=== PATIENT | female | born 1970 | race Caucasian/White ===

== ENCOUNTER → 2023-10-05 14:30 | Outpatient (REF) | payer OTHER, SELFPAY | LOC: RAD 14:30 | PROVIDERS: ATTENDING PHYSICIAN Nurse Practitioner Adult Health | DX: M54.50 Low back pain, unspecified (principal) | CPT/HCPCS: 72110 ==

== ENCOUNTER → 2023-11-05 09:16 | Outpatient (REF) | payer OTHER, SELFPAY | LOC: RCS 09:16 | PROVIDERS: ATTENDING PHYSICIAN Nurse Practitioner Adult Health | DX: R94.31 Abnormal electrocardiogram [ECG] [EKG] (principal); I45.10 Unspecified right bundle-branch block; R07.9 Chest pain, unspecified; R06.09 Other forms of dyspnea | CPT/HCPCS: 93225; 93226 ==

== ENCOUNTER 2024-04-04 11:48 | Emergency (ER) | payer OTHER, SELFPAY ==
[2024-04-04] VITALS (8 sets, daily range): BP systolic 129–162; BP diastolic 79–101; PULSE 63–92
[2024-04-04 12:09] LABS: % Basophils 1.1 % (0-2); % Eosinophils 2.5 % (0-6); % Lymphocytes 32.3 % (20.5-51.1); % Monocytes 7.8 % (1.7-9.3); % Neutrophils 56.3 % (42.2-75.2); Absolute Eosinophils 0.1 10^3/uL (0-0.7); Absolute Lymphocytes 1.2 10^3/uL (1.2-3.4); Absolute Monocytes 0.3 10^3/uL (0.1-0.6); Hematocrit 41.1 % (37.0-47.0); Hemoglobin 13.9 g/dL (12.0-16.0); Mean Corp Hgb Conc. 33.8 g/dL (33.0-37.0); Mean Corpuscular Hgb 30.3 pg (27.0-31.0); Mean Corpuscular Volume 89.5 fL (81.0-99.0); Mean Platelet Volume 9.4 fL (7.4-10.4); Nucleated Red Blood Cells % 0 %; Platelet Count 196 10^3/uL (130-400); Red Blood Cell Count 4.59 10^6/uL (4.20-5.40); Red Cell Dist. Width 13.2 % (11.5-14.5); White Blood Cell Count 3.6 10^3/uL (4.8-10.8)
[2024-04-04 12:20] LABS: ALT (SGPT) 75 U/L (0-35); AST (SGOT) 62 U/L (14-36); Albumin 4.9 g/dl (3.5-5.0); Alkaline Phosphatase 68 U/L (38-126); Blood Urea Nitrogen 9 mg/dl (7-17); Calcium 9.8 mg/dl (8.4-10.2); Carbon Dioxide 28 mmol/L (22-30); Chloride 103 mmol/L (98-107); Glucose 101 mg/dl (70-99); Potassium 4.7 mmol/L (3.5-5.1); Sodium 143 mmol/L (135-145); Total Bilirubin 0.2 mg/dl (0.2-1.3); Total Protein 6.9 g/dl (6.3-8.2); eGFR > 60.00
[2024-04-04 12:31] LABS: Troponin I < 0.012 ng/ml
--- NOTE | 2024-04-04 13:10 | ED.GENMED ---
History of Present Illness
General
Chief Complaint: Dizziness
Source: patient and family
Exam Limitations: none
Time Seen by Provider: 04/04/24 12:15
Nursing documentation reviewed up to this point in time: agreed with
History of Present Illness
History of Present Illness:
Patient is a 54-year-old female presenting to the emergency department via EMS following near syncopal event preparing to go today. Patient states she was walking up to the polls when she started to feel anxious. Patient states she started to feel
extremely lightheaded, dizzy, with tunnel vision and was able to get herself onto the ground. Patient states she did not lose consciousness. No injuries. Many people were around at the time and came over to assist. Someone did call 911 and
transported patient to the emergency department.
Patient does state that she feels better than she did at time of near-syncope although she still feels mildly lightheaded and 'off '.
Patient denies any preceding chest pain, shortness of breath, headache. Patient denies any nausea, vomiting.
Past History
Past History
ED Past Medical History: Asthma, Seizures and Other (Scoliosis, chronic back pain maintained on tramadol, migraine headaches, anxiety, Iron deficiency anemia, ovarian cyst, IBS)
ED Past Surgical History: Cholecystectomy, , Gynecological and Orthopedic (Scoliosis surgery at age 11 )
Social History
Tobacco: Former smoker
Alcohol: None
Drug: None
Personal:
Living: with family
Employment: Employed
Family History
Family History: Hypertension
Review of Systems
Review of Systems
Allergies reviewed?: Yes
All Other Systems: ROS reviewed and negative except as documented in HPI and ROS
Phy Exam
Physical Exam
Physical Exam:
Vitals: Hypertensive, otherwise vital signs stable. Afebrile
General: Patient is anxious appearing, no acute distress
Skin: Warm and dry, no rashes or lesions
Head: Normocephalic, atraumatic
Eyes: Sclera nonicteric. EOMs intact. No nystagmus.
Throat: Protecting airway
Neck: Normal ROM, no cervical spine tenderness, no meningismus
Cardiac: Regular rate and rhythm, no murmurs.
Pulm: Normal respiratory effort, no wheezes, rales, rhonchi heard on exam.
Abdomen: Abdomen soft. No abdominal tenderness.
Extremities: No evidence of cyanosis or edema. Palpable DP pulses bilaterally. Negative Homans' sign bilaterally.
Neuro: AAOx3. CN II-XII intact. No focal neurologic deficits.
Psychiatric: Normal affect.
Course
Orders/Labs/Results
Orders:
Orders
04/04/24 11:50
Electrocardiogram (*1) Urgent
Reason for Study: Vertigo / Dizzy
04/04/24 11:51
EKG- Treatment ONCE
04/04/24 11:52
Complete Blood Count/With Diff Urgent
Comprehensive Metabolic Panel Urgent
Troponin I Urgent
04/04/24 12:58
EKG [Electrocardiogram (*1)] Urgent
Reason for Study: Vertigo / Dizzy
EKG- Treatment ONCE
Orthostatic VS- Treatment ONCE
0.9% Sodium Chloride 1000 ml [Nss] 1,000 ml IV BOLUS
04/04/24 13:49
Lorazepam [Ativan] 0.5 mg PO NOW STA
Abnormal Lab Results
04/04/24
11:52
WBC 3.6 L 10^3/uL
(4.8-10.8)
Glucose 101 H mg/dl
(70-99)
AST 62 H U/L
(14-36)
ALT 75 H U/L
(0-35)
04/04/24 11:52
04/04/24 11:52
Vital Signs
Initial and Last Documented VS:
Initial Vital Signs
Temp Pulse Resp Pulse Ox
97.9 F 70 17 98
04/04/24 11:52 04/04/24 11:52 04/04/24 11:52 04/04/24 11:52
Last Documented Vital Signs
Temp Pulse Resp BP Pulse Ox
97.9 F 69 16 146/97 99
04/04/24 11:52 04/04/24 14:45 04/04/24 14:45 04/04/24 14:00 04/04/24 14:45
MDM/Problems Addressed
Differential Diagnosis Includes:
Not limited to: Dehydration, viral illness, vasovagal syncope, cardiac arrhythmia
MDM/Problems Addressed:
54-year-old female presenting following near syncopal event. Patient reports feeling very anxious prior to lightheadedness, dizziness. No preceding chest pain, shortness of breath. There was no reported loss of consciousness. Patient presents
feeling somewhat lightheaded, otherwise asymptomatic. Patient initially hypertensive on arrival although normalized by my assessment. Otherwise vital signs are stable. Patient is afebrile. Exam as above. Patient anxious appearing, although
conversational and nontoxic. Heart regular rate and rhythm, lungs clear bilaterally. No clinical evidence of DVT on exam. EKG obtained in triage shows a sinus arrhythmia without any acute ischemic changes. No prolonged QT, delta wave, or
evidence of Brugada. Labs were obtained without any clinically significant abnormalities. There is a mild leukopenia�which appears chronic. Troponin undetectable. Patient did receive a liter of IV fluids in emergency and was kept on monitor
without any evidence of cardiac arrhythmia. Given patient's significant anxiety�her prescribed dose of p.o. Ativan was given with significant improvement in symptoms.
On reassessment�patient feeling much better, no longer lightheaded. Patient did get up and walk around the room without any ataxia, lightheadedness, or persistent dizziness. Suspect likely near syncope secondary to anxiety versus vasovagal
response. Do not suspect cardiac etiology although will recommend follow-up with PCP for potential Holter monitoring. No other evidence suggest serious causes of syncope. Do not suspect seizure. Patient feels comfortable with discharge. Patient
will follow-up with primary care in a few days. Return precaution discussed at length. Case discussed with attending physician.
Chronic conditions affecting care:
Anxiety
Acute Exacerbation and/or Progression of Chronic Illness:
N/A
*Pulse Oximetry
Patient hypoxic: no
*EKG
Interpreted by ED Provider?: Yes
EKG Intrepretation Date: 04/04/24
Interpretation: abnormal
Comparison EKG: changes noted
Heart Rate: 76
Rate: normal
Rhythm: sinus and sinus arrhythmia
[place]: normal axis
Interval: normal interval
QRS Pattern: normal QRS
Ischemia: no ischemia
*Art Professor Interpretation
Rate: normal
Interpretation: normal
Heart Rate: 70
Rhythm: sinus
*Critical Care Note
Total Time (30-74mins, 75-104mins- exclusive of procedures): Not Applicable
ED Attending Note
-
Portions of this chart may have been created with voice recognition software.� Occasional wrong word or��sound alike� substitutions may have occurred due to the inherent limitations of voice recognition software.
Discharge Plan
Departure
Patient Disposition: Home (Routine Discharge)
Date of Disposition: 04/04/24
Time of Disposition: 15:36
Patient with high blood pressure during this ER visit?: Yes
Condition: Good
Covid-19: Not Applicable
Discharge Problem:
Near syncope
Instructions: Dizziness, Nonvertigo, (DC), Near Fainting (DC), BLOOD PRESSURE
Prescriptions:
No Action
axgrcvhozk-gmvoqmtozjyrj-zcla 1 TAB tablet
2 tab PO Q4HPRN PRN (Reason: migraines)
lorazepam 0.5 MG tablet
0.5 mg PO DAILYPRN PRN (Reason: anxiety or insomnia)
promethazine 25 MG tablet
12.5 mg PO DAILYPRN PRN (Reason: nv with headache)
fluticasone propion-salmeterol 1 DISK blister with device
1 puff inhalation R BID
levalbuterol HCl 0.63 MG/3 ML solution for nebulization
0.63 mg inhalation R Q4HPRN PRN (Reason: sob)
sertraline 100 MG tablet
100 mg PO DAILY
fluticasone propionate 1 SPRAY spray,suspension
1 spray SPRAY BID
lacosamide 50 MG tablet
50 mg PO DAILY
Referrals:
Sai Osuna CRNP [Family Provider] - Follow up in 5-7 days
Activity Restrictions/Additional Instructions:
RETURN TO THE EMERGENCY DEPARTMENT WITH ANY FEVERS, HEADACHE, PERSISTENT DIZZINESS, FAINTING, SHORTNESS OF BREATH, CHEST PAIN, OR ANY OTHER CONCERNS
-It is important to stay well-hydrated. You should take it easy over the next few days.
-Please follow-up with your primary care provider within the next 2 days to ensure symptoms are improving/for further evaluation. They may recommend a Holter monitoring in the future.
Monitor your symptoms closely and return to the emergency department with any acute worsening/new symptoms or any other concerns
Interventions
Interventions:
*Risk Screen - Suicide Last Done: 04/04/24 11:52
*General Assessment Last Done: 04/04/24 11:52
*Neglect/Abuse Screening Last Done: 04/04/24 11:52
ED- Fall Risk Assessment Last Done: 04/04/24 11:59
*ED COVID-19 Vaccine History Last Done: 04/04/24 11:52
*Nursing Disposition Last Done: 04/04/24 15:48
ED- Neurological Assessment Last Done: 04/04/24 11:59
ED- Cardiac Assessment Last Done: 04/04/24 11:59
ED Swallowing Screen Last Done: 04/04/24 12:00
Discharge Date and Time
Discharge Date/Time: 04/04/24 15:50
Print Language: HONG KONGER
[2024-04-04] MEDS: NSS 1000 IV (13:42)
[2024-04-04] MEDS: ATIVAN 0.5 MG PO (13:55)
== END 2024-04-04 15:50 | disposition home or self-care (01) ==
LOC: EMR 11:48
PROVIDERS: Emergency Medicine; EMERGENCY PHYSICIAN Student in an Organized Health Care Education/Training Program; FAMILY PHYSICIAN Nurse Practitioner Adult Health
DX: R55 Syncope and collapse (principal); I10 Essential (primary) hypertension; Z87.891 Personal history of nicotine dependence
CPT/HCPCS: 99284; 96360; 80053; 84484; 85025; 93005

== ENCOUNTER 2024-08-10 15:18 | Emergency (ER) | payer OTHER, SELFPAY ==
[2024-08-10 15:18] VITALS: BMI 17.7
[2024-08-10 15:23] VITALS: BP 127/88
[2024-08-10 16:52] LABS: ALT (SGPT) 32 U/L (0-35); AST (SGOT) 36 U/L (14-36); Albumin 5.2 g/dl (3.5-5.0); Alkaline Phosphatase 96 U/L (38-126); Blood Urea Nitrogen 9 mg/dl (7-17); Calcium 9.4 mg/dl (8.4-10.2); Carbon Dioxide 22 mmol/L (22-30); Chloride 105 mmol/L (98-107); Estimated Creatinine Clearance 67 ml/min; Glucose 71 mg/dl (70-99); Potassium 3.8 mmol/L (3.5-5.1); Sodium 138 mmol/L (135-145); Total Bilirubin 0.5 mg/dl (0.2-1.3); Total Protein 7.3 g/dl (6.3-8.2); eGFR > 60.00
[2024-08-10 16:59] LABS: % Basophils 0.7 % (0-2); % Eosinophils 1.7 % (0-6); % Immature Granulocytes 0.2 % (0-0.5); % Lymphocytes 26.4 % (20.5-51.1); % Monocytes 13.9 % (1.7-9.3); % Neutrophils 57.1 % (42.2-75.2); Absolute Eosinophils 0.1 10^3/uL (0-0.7); Absolute Lymphocytes 1.1 10^3/uL (1.2-3.4); Absolute Monocytes 0.6 10^3/uL (0.1-0.6); Absolute Neutrophils 2.4 10^3/uL (1.4-6.5); Hematocrit 38.6 % (37.0-47.0); Hemoglobin 13.2 g/dL (12.0-16.0); Mean Corp Hgb Conc. 34.2 g/dL (33.0-37.0); Mean Corpuscular Hgb 30.2 pg (27.0-31.0); Mean Corpuscular Volume 88.3 fL (81.0-99.0); Mean Platelet Volume 9.7 fL (7.4-10.4); Nucleated Red Blood Cells % 0 %; Platelet Count 199 10^3/uL (130-400); Red Blood Cell Count 4.37 10^6/uL (4.20-5.40); Red Cell Dist. Width 12.9 % (11.5-14.5); White Blood Cell Count 4.2 10^3/uL (4.8-10.8)
[2024-08-10 17:04] LABS: Troponin I < 0.012 ng/ml
[2024-08-10 18:00] VITALS: BP 122/74
[2024-08-10 18:06] LABS: COVID-19 Antigen Negative (Negative)
[2024-08-10 18:26] VITALS: BP 110/72
[2024-08-10 19:00] VITALS: BP 126/83
[2024-08-10] MEDS: XOPENEX 1.25 MG INHALANT SOLUTION INH (19:24)
[2024-08-10] MEDS: DELTASONE 50 MG PO (19:24)
--- NOTE | 2024-08-10 19:43 | ED.GENMED ---
History of Present Illness
General
Chief Complaint: Breathing Problem
Source: patient
Exam Limitations: none
Time Seen by Provider: 08/10/24 16:21
Nursing documentation reviewed up to this point in time: agreed with
History of Present Illness
History of Present Illness:
pt is a 54 y/o F with h/o asthma, pneumonia ,in the past, IBS
here with uri sxs that startte 6 days ago
fever to 101 (resolved), sore throat, headache, nasal cognestion that progressed to chest
she has been coughing frqeuently and feels wheezy and short of breath at times
she also feels lightheaded and deydrated
she went to PCP and was sent in for testing
pt has not ever had DVT/PE
no leg swelling
no rf for dvt
Past History
Past History
ED Past Medical History: Asthma, Seizures and Other (Scoliosis, chronic back pain maintained on tramadol, migraine headaches, anxiety, Iron deficiency anemia, ovarian cyst, IBS)
ED Past Surgical History: Cholecystectomy, , Gynecological and Orthopedic (Scoliosis surgery at age 11 )
Social History
Tobacco: Former smoker
Alcohol: None
Drug: None
Personal:
Living: with family
Employment: Employed
Family History
Family History: Hypertension
Review of Systems
Review of Systems
Allergies reviewed?: Yes
All Other Systems: Not applicable
Phy Exam
Physical Exam
Physical Exam:
GENERAL: Alert , in no apparent distress, mild tachypnea
EYE: pupils equal and reactive
NECK: Supple
ENT: o/p clr, mmm.
CARDIAC: Regular rate and rhythm .
LUNGS: may be somewhat dimiinished but does not have much wheezing or crackles or rhonchi
frequent cough, seems mildly tachypneic;
ABDOMEN: Soft, without focal tenderness, no r/g, no cvat, normal bowel sounds
NEUROLOGICAL: Alert and oriented, no focal neuro deficits
SKIN: Warm and dry, skin intact.
MUSCULOSKELETAL: No edema, well perfused. neg jack's sign
PSYCH: anxious
Scores
Heart Failure Risk
Heart Failure Risk Score: Not Applicable
PERC Rule Criteria
Age <50 years: Yes
HR <100 bpm: Yes
Room air oxygen sat >94%: Yes
History of DVT or PE: No
Recent trauma or surgery: No
Hemoptysis: No
Exogenous estrogen: No
Clinical signs suggestive of DVT: No
: No
Considered low risk for PE: Yes
PERC Score: 0
PE can be excluded by PERC: Yes
Course
Orders/Labs/Results
Orders:
Orders
08/10/24 15:27
Electrocardiogram (*1) Urgent
Reason for Study: Shortness of Breath
EKG- Treatment ONCE
08/10/24 15:47
Complete Blood Count/With Diff Urgent
Comprehensive Metabolic Panel Urgent
Troponin I Urgent
08/10/24 17:24
CR Chest - 2 Views Urgent
Comment:
Reason For Exam: cough
08/10/24 17:35
COVID-19 Antigen Urgent
Source: Nasal Swab
Influenza A+B Rapid Molecular Urgent
RADU Source: Nasal Swab
Specimen Description:
08/10/24 19:08
Levalbuterol [Xopenex 1.25 mg Inhalant Solution] 1.25 mg INH R NOW STA
08/10/24 19:10
Prednisone [Deltasone] 50 mg PO NOW STA
Abnormal Lab Results
08/10/24
15:47
WBC 4.2 L 10^3/uL
(4.8-10.8)
Absolute Lymphs (auto) 1.1 L 10^3/uL
(1.2-3.4)
Monocytes % 13.9 H %
(1.7-9.3)
Albumin 5.2 H g/dl
(3.5-5.0)
08/10/24 15:47
08/10/24 15:47
Vital Signs
Initial and Last Documented VS:
Initial Vital Signs
Temp Pulse Resp BP Pulse Ox
36.8 C 89 18 127/88 97
08/10/24 15:23 08/10/24 15:23 08/10/24 15:23 08/10/24 15:23 08/10/24 15:23
Last Documented Vital Signs
Temp Pulse Resp BP Pulse Ox
36.8 C 74 16 126/83 99
08/10/24 15:23 08/10/24 19:45 08/10/24 20:06 08/10/24 19:00 08/10/24 20:06
MDM/Problems Addressed
Differential Diagnosis Includes:
asthma, anxiety, uri, bronchitis, pneumonia, less likely PE
MDM/Problems Addressed:
54 y/o F
h/o asthma
no intubations
here with uri sxs x 6 days with frequent cough, wheezing and now lightheadedness and dyspnea
sent by PCP who wa going to prescribe zpak according to patient but recommended pt come for testing to be sure no significant pna
pt has not had fever recently since beginning of the illness
pain is mostly with coughing and she feels sob
she has not had hemoptysis, no h/o PE, no recent surgery
pt has dimiinished lungs maybe end exp ewheezing but very minimal and not tight
she looks tachypneic and seems anxious
her pulse ox is normal adns heis not tachycardic
ekg nonischemic unchanged
wbc 4.2
flu/covid neg
trop neg
cxr indep reviewed by me, scoliosis surgery previously but no pna
pt given levalbuterol neb and stoeirds and feels better
ambulated aroun department with no inc in tachypnea and no hypoxia
PERC neg
d/c home
*Critical Care Note
Total Time (30-74mins, 75-104mins- exclusive of procedures): Not Applicable
ED Attending Note
-
Portions of this chart may have been created with voice recognition software.� Occasional wrong word or��sound alike� substitutions may have occurred due to the inherent limitations of voice recognition software.
Discharge Plan
Departure
Patient Disposition: Home (Routine Discharge)
Date of Disposition: 08/10/24
Time of Disposition: 19:59
Patient with high blood pressure during this ER visit?: No
Condition: Fair
Covid-19: Negative COVID-19
Discharge Problem:
Asthmatic bronchitis
Instructions: Acute Bronchitis, Adult (DC)
Prescriptions:
New
prednisone 50 mg tablet
50 mg PO DAILY Qty: 4 0RF
levalbuterol HCl 0.63 mg/3 mL solution for nebulization
0.63 mg inhalation Q8H PRN (Reason: shortness of breath or wheezing) Qty: 72 0RF
azithromycin [Zithromax Z-Riaz] 250 mg tablet
See Rx Instructions .ROUTE .COMPLEX Qty: 6 0RF
Rx Instructions:
2 tabs po day 1 then 1 tab po daily x 4 days
No Action
cttlwrecog-hypmrdrurvhlu-hggh 1 TAB tablet
2 tab PO Q4HPRN PRN (Reason: migraines)
lorazepam 0.5 MG tablet
0.5 mg PO DAILYPRN PRN (Reason: anxiety or insomnia)
promethazine 25 MG tablet
12.5 mg PO DAILYPRN PRN (Reason: nv with headache)
fluticasone propion-salmeterol 1 DISK blister with device
1 puff inhalation R BID
levalbuterol HCl 0.63 MG/3 ML solution for nebulization
0.63 mg inhalation R Q4HPRN PRN (Reason: sob)
sertraline 100 MG tablet
100 mg PO DAILY
fluticasone propionate 1 SPRAY spray,suspension
1 spray SPRAY BID
lacosamide 50 MG tablet
50 mg PO DAILY
Referrals:
Sai Osuna CRNP [Family Provider] -
Activity Restrictions/Additional Instructions:
YOUR SYPMTOMS ARE PROBABLY DUE TO VIRAL BRONCHITIS TRIGGERING YOUR ASTHMA
YOUR OXYGEN LEVELW NORMAL
YOU HAD NO SIGNS OF PNEUMONIA
YOUR BLOOOD WORK WAS REASSURING
TAKE PREDNISONE 50 MG ONCE A DAY FOR 4 DAYS STARTING TOMORROW
USE THE INHALER EVERY 4-6 HOURS
FOLLOW UP WITH YOUR FAMILY DOCTOR NEXT WEEK
RETURN FOR WORSE SYMPTOMS.
Interventions
Interventions:
*Risk Screen - Suicide Last Done: 08/10/24 15:23
*General Assessment Last Done: 08/10/24 15:23
*Neglect/Abuse Screening Last Done: 08/10/24 15:23
*ED- Fall Risk Assessment Last Done: 08/10/24 16:11
*Nursing Disposition Last Done: 08/10/24 20:06
ED- Cardiac Assessment Last Done: 08/10/24 16:11
ED- Pulmonary Assessment Last Done: 08/10/24 16:11
Discharge Date and Time
Discharge Date/Time: 08/10/24 20:06
Print Language: BENGALI
--- NOTE | 2024-08-10 19:56 | EDRN ---
ambulatory pulse ox 99%.
pt states she feels much better.
== END 2024-08-10 20:06 | disposition home or self-care (01) ==
LOC: EMR 15:18
PROVIDERS: Physician Assistant; EMERGENCY PHYSICIAN Student in an Organized Health Care Education/Training Program; FAMILY PHYSICIAN Nurse Practitioner Adult Health
DX: J45.909 Unspecified asthma, uncomplicated (principal); K58.9 Irritable bowel syndrome, unspecified; F41.9 Anxiety disorder, unspecified; M41.9 Scoliosis, unspecified; Z82.49 Family history of ischemic heart disease and other diseases of the circulatory system; Z87.01 Personal history of pneumonia (recurrent); Z87.891 Personal history of nicotine dependence; Z90.49 Acquired absence of other specified parts of digestive tract
CPT/HCPCS: 99283; 71046; 80053; 84484; 85025; 87502; 87811; 93005

== ENCOUNTER → 2024-11-17 14:52 | Outpatient (REF) | payer OTHER, SELFPAY | LOC: WDC 14:52 | PROVIDERS: ATTENDING PHYSICIAN Nurse Practitioner Adult Health | DX: Z12.31 Encounter for screening mammogram for malignant neoplasm of breast (principal) | CPT/HCPCS: 77063; 77067 ==

== ENCOUNTER 2025-03-19 14:47 | Emergency (ER) | payer OTHER, SELFPAY ==
[2025-03-19 14:51] VITALS: BP 148/97
[2025-03-19] MEDS: TYLENOL 650 MG PO (14:58)
--- NOTE | 2025-03-19 16:51 | ED.GENMED ---
History of Present Illness
General
Chief Complaint: Musculo-Skeletal Complaint
Source: patient
Exam Limitations: none
Time Seen by Provider: 03/19/25 16:33
History of Present Illness
History of Present Illness:
55yoF with a history of seizures, migraines, and asthma presenting via EMS for evaluation of right knee pain. Patient was squatting at [employer] store today looking at a coffee. She reports a sudden onset of right lateral knee pain. She
states it felt like her tendon shifted. She was unable to ambulate so EMS was called. She had some paresthesias initially which have resolved. She states she is unable to move the knee due to her pain. She has a history of a meniscus surgery in
that knee in 2016.
Past History
Past History
ED Past Medical History: Asthma, Seizures and Other (Scoliosis, chronic back pain maintained on tramadol, migraine headaches, anxiety, Iron deficiency anemia, ovarian cyst, IBS)
ED Past Surgical History: Cholecystectomy, , Gynecological and Orthopedic (Scoliosis surgery at age 11 )
Social History
Tobacco: Former smoker
Alcohol: None
Drug: None
Personal:
Living: with family
Employment: Employed
Family History
Family History: Hypertension
Phy Exam
General Physical Exam
General Presentation: well appearing and no apparent distress
General Skin: warm and dry
General Habitus: normal
General Mental: alert
ENT Exam
ENT Exam: normocephalic
Neurological Exam
Neurological Exam: alert
Musculoskeletal Exam
Musculoskeletal Exam: other (R knee: No effusion or deformity noted. No tenderness to palpation of joint. Flexion/extension limited 2/2 pain. No pitting edema in calf or skin changes. 2+ PT pulse and sensation intact. )
Skin Exam
Skin Exam: normal color and warm/dry
Psychiatric Exam
Psychiatric Exam: normal mood/affect
Course
Orders/Labs/Results
Orders:
Orders
03/19/25 14:58
Acetaminophen [Tylenol] 650 mg PO NOW STA
03/19/25 14:59
Knee, Right 4 or More Views [CR Knee- Right 4 Or More View*] Urgent
Comment:
Reason For Exam: pain
03/19/25 16:51
Oxycodone [Roxicodone] 5 mg PO NOW STA
03/19/25 17:23
Mike Wrap Right-Treatment ONCE
Walker [Treatment- Walker] ONCE
Vital Signs
Initial and Last Documented VS:
Initial Vital Signs
Temp Pulse Resp BP Pulse Ox
97.8 F 91 18 148/97 93
03/19/25 14:51 03/19/25 14:51 03/19/25 14:51 03/19/25 14:51 03/19/25 14:51
Last Documented Vital Signs
Temp Pulse Resp BP Pulse Ox
97.8 F 91 18 148/97 93
03/19/25 14:51 03/19/25 14:51 03/19/25 14:51 03/19/25 14:51 03/19/25 16:52
MDM/Problems Addressed
Differential Diagnosis Includes:
55yoF here with R knee pain that started while she was squatting in the grocery store. Unable to ambulate due to pain. Knee joint appears normal to inspection and no effusion noted. No reproducible tenderness to palpation but pain is elicited with
ROM. RLE is neurovascularly intact. Differential diagnosis includes: fracture, ligamentous/tendon injury, meniscus injury, doubt dislocation
X-rays of R knee obtained which are normal. Knee immobilizer initially ordered although patient was unable to tolerate this and mike wrap applied. She did not do well with crutches and walker was provided. Prescription provided for oxycodone for
breakthrough pain. She was advised to f/u with orthopedics and patient was discharged in stable condition.
*Pulse Oximetry
SaO2: 93
Oxygen Mode of Delivery: Room air
Patient hypoxic: no
*Critical Care Note
Total Time (30-74mins, 75-104mins- exclusive of procedures): Not Applicable
ED Attending Note
-
Portions of this chart may have been created with voice recognition software.� Occasional wrong word or��sound alike� substitutions may have occurred due to the inherent limitations of voice recognition software.
Discharge Plan
Departure
Patient Disposition: Home (Routine Discharge)
Date of Disposition: 03/19/25
Time of Disposition: 16:57
Patient with high blood pressure during this ER visit?: Yes
Discharge Problem:
Injury of right knee
Instructions: Knee Pain (DC), Taking opioids safely - ED (DC)
Prescriptions:
New
oxycodone 5 mg tablet
5 mg PO Q6H PRN (Reason: Pain) Qty: 8 0RF
No Action
xsceoucgts-oksfhltytwvyy-fxsv 1 TAB tablet
2 tab PO Q4HPRN PRN (Reason: migraines)
lorazepam 0.5 MG tablet
0.5 mg PO DAILYPRN PRN (Reason: anxiety or insomnia)
promethazine 25 MG tablet
12.5 mg PO DAILYPRN PRN (Reason: nv with headache)
fluticasone propion-salmeterol 1 DISK blister with device
1 puff inhalation R BID
levalbuterol HCl 0.63 MG/3 ML solution for nebulization
0.63 mg inhalation R Q4HPRN PRN (Reason: sob)
sertraline 100 MG tablet
100 mg PO DAILY
fluticasone propionate 1 SPRAY spray,suspension
1 spray SPRAY BID
lacosamide 50 MG tablet
50 mg PO DAILY
prednisone 50 mg tablet
50 mg PO DAILY Qty: 4 0RF
levalbuterol HCl 0.63 mg/3 mL solution for nebulization
0.63 mg inhalation Q8H PRN (Reason: shortness of breath or wheezing) Qty: 72 0RF
azithromycin [Zithromax Z-Riaz] 250 mg tablet
See Rx Instructions .ROUTE .COMPLEX Qty: 6 0RF
Rx Instructions:
2 tabs po day 1 then 1 tab po daily x 4 days
Referrals:
Arsen Arias MD [Active, Orthopedics]
Activity Restrictions/Additional Instructions:
Wear knee immobilizer and use crutches. Take Tylenol 650 mg every 6 hours as needed for pain. Take oxycodone only as needed for severe breakthrough pain.
Please call tomorrow to schedule a follow-up appointment with orthopedics. Return to the ER with any new or worsening symptoms.
Interventions
Interventions:
*Risk Screen - Suicide Last Done: 03/19/25 14:51
*General Assessment Last Done: 03/19/25 14:51
*Nursing Disposition Last Done: 03/19/25 17:44
ED-Musculoskeletal Assessment Last Done: 03/19/25 17:44
Discharge Date and Time
Discharge Date/Time: 03/19/25 17:44
Print Language: INDIAN
[2025-03-19] MEDS: ROXICODONE 5 MG PO (17:05)
--- NOTE | 2025-03-19 17:23 | EDRN ---
Pt could not return demonstration of crutches safely. Obtained walker. When returned to bedside, pt reports that she cannot tolerate knee immobilizer. PA notified. Verbal for DAISHA wrap.
== END 2025-03-19 17:44 | disposition home or self-care (01) ==
LOC: EMR 14:47
PROVIDERS: EMERGENCY PHYSICIAN Emergency Medicine; FAMILY PHYSICIAN Nurse Practitioner Adult Health
DX: S89.91XA Unspecified injury of right lower leg, initial encounter (principal); R03.0 Elevated blood-pressure reading, without diagnosis of hypertension; J45.909 Unspecified asthma, uncomplicated; G43.909 Migraine, unspecified, not intractable, without status migrainosus; F41.9 Anxiety disorder, unspecified; M41.9 Scoliosis, unspecified; K58.9 Irritable bowel syndrome, unspecified; Z87.891 Personal history of nicotine dependence; X50.1XXA Overexertion from prolonged static or awkward postures, initial encounter; Y92.512 Supermarket, store or market as the place of occurrence of the external cause
CPT/HCPCS: 99283; 73564